=== PATIENT | male | born 1955 | race Caucasian/White ===

== ENCOUNTER 2018-07-01 07:19 | Day surgery (SDC) | payer OTHER ==
[2018-06-26 17:42] VITALS: BMI 44.1
[2018-07-01] MEDS ORDERED: PROPOFOL 20 ML ONE (09:04)
[2018-07-01 09:28] VITALS: TEMP 98
[2018-07-01 10:00] VITALS: BP 122/68; PULSE 68
--- NOTE | 2018-07-03 09:35 | PATH ---
Surgical Pathology Report Patient Name: DELMIS BARRON [facility]. Rec. #: [id number] /Age/Gender: 1955 (Age: 62) / M Account: [id number] Location: [facility] Taken: 07/01/2018 Received: 07/01/2018 Reported: 07/03/2018 Physicians: Jorje Sahu M.D. Specimen(s) Received BX POLYP (R) COLON Clinical History Family history of colon cancer, polyp Postoperative diagnosis: Polyp Final Diagnosis COLON, RIGHT, BIOPSY: TUBULAR ADENOMA. Electronically Signed Parish Chung M.D. Gross Description Received in formalin, labeled "biopsy polyp right colon" is a blank, irregular portion of soft tissue measuring 0.6 cm. in greatest dimension. The specimen is submitted in toto in one cassette. 07/02/201807/02/2018
== END 2018-07-01 10:04 | disposition home or self-care (01) ==
LOC: FASU-ENDO 07:19
PROVIDERS: ATTEND Internal Medicine Gastroenterology
PROC: 0DBK8ZX Excision of Ascending Colon, Via Natural or Artificial Opening Endoscopic, Diagnostic (ICD-10-PCS; principal; 2018-07-01 09:02)
DX: Z12.11 Encounter for screening for malignant neoplasm of colon (principal); Z80.0 Family history of malignant neoplasm of digestive organs; Z83.71 Family history of colonic polyps; D12.2 Benign neoplasm of ascending colon
CPT/HCPCS: 88305-TC